=== PATIENT | female | born 1990 | race Two or more races ===

== ENCOUNTER 2016-11-27 13:48 | Emergency (ER) | payer OTHER ==
[~2016-11-27] VITALS: Ht 152.4 cm; Wt 59.0 kg
[~2016-11-27 13:48] MED LIST: HYDR-971 PO; NAPR500T8 PO; VENTOLIN HFA18 GM IH
[2016-11-27] MEDS ORDERED: HYDROcodone/APAP 5/325MG 1 TAB TABLET PO ONE (14:30)
[2016-11-27] MEDS ORDERED: ONDANSETRON ODT 4 MG TAB.RAPDIS. ONE (15:41)
--- NOTE | 2016-11-27 15:43 | RAD ---
CT HEAD WO CONTRAST Date: 11/27/2016 3:19 PM Clinical Indication: pt fell and hit head, now feels dizzy Comparison: None. Technique: 5 mm axial tomographic images were obtained of the head without contrast. Findings: The brain parenchyma is normal in attenuation. No intra- or extra-axial mass or fluid collection. No acute hemorrhage. The ventricles are normal in size, shape, and morphology. The gerber-white matter junction is normal. The basilar cisterns are patent. The visualized paranasal sinuses are normal. The visualized portions of the orbits and globes are normal. The mastoid air cells are clear. No aggressive osseous lesion or fracture. Impression: No acute intracranial process. PQRS Compliance Statement: One or more of the following individualized dose reduction techniques were utilized for this examination: 1. Automated exposure control 2. Adjustment of the mA and/or kV according to patient size 3. Use of iterative reconstruction technique Electronically signed by: Wale Segura MD (11/27/2016 3:40 PM) [facility] [place]
[2016-11-27] MEDS ORDERED: ONDANSETRON PF 4 MG/2 ML VIAL. IV ONE (15:45)
[2016-11-27 15:54] VITALS: BP 125/78
[2016-11-27] MEDS ORDERED: ONDANSETRON ODT 4 MG TAB.RAPDIS. PO ONE ×2 (16:00→16:45)
--- NOTE | 2016-11-27 16:30 | PHYS DOC ---
Past Medical History Past Medical History: Asthma, Other Additional Past Medical Histor: Gallstones surgery scheduled next week Past Surgical History: Cholecystectomy Additional Past Surgical Histo: foot; eye Alcohol Use: Occasionally Drug Use: None Adult General Chief Complaint Chief Complaint: HEAD INJURY/TRAUMA HPI HPI Patient is a 26 year old female who presents with headache & dizziness after a fall yesterday. She states last evening she tripped over her child on the stairs at home, struck her head against a metal vent. She reports brief loss of consciousness at time of injury. She has right sided scalp swelling. She reports lightheadedness. She feels nauseated. She has neck pain. She denies double vision. She denies extremity numbness/weakness. She denies syncope contributing to her fall. She is previously healthy & does not take blood thinners. She had bilateral eye surgery as a child. Review of Systems Review of Systems Constitutional: Denies fever or chills Eyes: Denies change in visual acuity HENT: Denies nasal congestion or sore throat Respiratory: Denies cough or shortness of breath Cardiovascular: Denies chest pain or edema GI: Reports nausea. Denies abdominal pain, vomiting Musculoskeletal: Reports neck pain Integument: Denies rash or skin lesions Neurologic: Reports headache, denies focal weakness or sensory changes Current Medications Current Medications Current Medications Medications (Trade) Dose Ordered Sig/Pauline Start Time Stop Time Status Last Admin Dose Admin Acetaminophen/ Hydrocodone Bitart (Lortab 5/325) 2 tab 1X ONCE 11/27/16 14:30 11/27/16 14:33 DC 11/27/16 14:52 2 TAB Ondansetron HCl (Zofran Odt) 4 mg 1X ONCE 11/27/16 16:45 11/27/16 16:46 DC Ondansetron HCl (Zofran) 4 mg 1X ONCE 11/27/16 15:45 11/27/16 16:37 DC Allergies Allergies Allergies Coded Allergies Type Severity Reaction Last Updated Verified diphenhydramine Adverse Reaction Intermediate 04/30/15 Yes Physical Exam Physical Exam Constitutional: Well developed, well nourished, no acute distress, non-toxic appearance. HENT: Normocephalic, mild right occipital hematoma with abrasion, bilateral external ears normal, oropharynx moist, nose normal. Eyes: PERRLA, EOMI though at rest she has upward/inward deviation of her right eye, conjunctiva normal, no discharge. Neck: supple, no stridor. no midline c-spine tenderness, right sided paraspinous muscle tenderness. Cardiovascular: RRR, no murmurs, no edema. Lungs & Thorax: LCTAB, no wheezing, no respiratory distress. Abdomen: soft, nontender, nondistended. Skin: Warm, dry, no erythema, no rash. Back: No tenderness. Extremities: No tenderness, no edema. 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 Psychologic: Affect normal, judgement normal, mood normal. Current Patient Data Vital Signs Vital Signs Date Time Temp Pulse Resp B/P (MAP) Pulse Ox O2 Delivery O2 Flow Rate FiO2 11/27/16 15:54 91 16 125/78 (94) 98 Room Air 11/27/16 14:00 98.8 98.8 Lab Values Laboratory Tests Test 11/27/16 13:51 POC Urine HCG, Qualitative Hcg negative (Negative) EKG EKG [] Radiology/Procedures Radiology/Procedures PROCEDURE: CT HEAD WO CONTRAST CT HEAD WO CONTRAST Date: 11/27/2016 3:19 PM Clinical Indication: pt fell and hit head, now feels dizzy Comparison: None. Technique: 5 mm axial tomographic images were obtained of the head without contrast. Findings: The brain parenchyma is normal in attenuation. No intra- or extra-axial mass or fluid collection. No acute hemorrhage. The ventricles are normal in size, shape, and morphology. The gerber-white matter junction is normal. The basilar cisterns are patent. The visualized paranasal sinuses are normal. The visualized portions of the orbits and globes are normal. The mastoid air cells are clear. No aggressive osseous lesion or fracture. Impression: No acute intracranial process. PQRS Compliance Statement: One or more of the following individualized dose reduction techniques were utilized for this examination: 1. Automated exposure control 2. Adjustment of the mA and/or kV according to patient size 3. Use of iterative reconstruction technique Electronically signed by: Wale Segura MD (11/27/2016 3:40 PM) [facility] [place] DICTATED and SIGNED BY: WALE SEGURA MD DATE: 11/27/16 1536 [] Course & Med Decision Making Course & Med Decision Making Pertinent Labs and Imaging studies reviewed. (See chart for details) The patient presents with headache & neck pain after a fall. She is well appearing & seated in a chair rather than on the bed in exam room. Gave norco for pain & zofran for nausea, & she is going to get a ride home as she drove herself. Obtained CT of the head which shows no acute intracranial process. She has right sided neck pain without cervical spine tenderness. She has CN6 palsy on exam but denies any visual complaints. She did have remote history of eye surgery but is unsure if she has deviation of gaze at baseline, in photos, etc. Discussed briefly with Dr. Bee of neurology, he felt likely chronic finding as she is well compensated without complaint of diplopia. Recommends no further imaging today given negative head CT, but may be beneficial to refer to ophthalmology & for outpatient MRI of the brain. Discussed results with the patient who is eager to go home today; she agrees with plan of care. Encouraged ibuprofen for pain, norco for severe pain & flexeril for muscle spasm. Follow up with PCP in 2-3 days for recheck & to schedule MRI, & referred to eye clinic. Come back for altered mental status, focal neurologic deficit, uncontrolled vomiting, any otherwise worsening condition. Discharged home in stable condition. [] Dragon Disclaimer Dragon Disclaimer This electronic medical record was generated, in whole or in part, using a voice recognition dictation system. Departure Departure Impression: Primary Impression: Closed head injury Disposition: 01 HOME, SELF-CARE Condition: STABLE Referrals: ALINA MCCALL MD (PCP) Nikki LEIVA MD Patient Instructions: Head Injury, Adult, [id number] Additional Instructions: You were seen in the emergency department today for head injury. The CT scan did not show a serious injury. Please rest, drink fluids, take Tylenol or ibuprofen for pain. For severe breakthrough pain, you may take [place]. No drinking alcohol or driving while taking this medication. Use Flexeril for muscle pain. Follow-up with primary care physician on Tuesday. It is recommended to have an outpatient MRI performed if you continue to have symptoms, based on abnormal eye exam here. You should also follow up with an eye doctor this week. Come back for confusion, numbness or weakness in arms or legs, uncontrolled vomiting, any otherwise worsening condition. Scripts Cyclobenzaprine Hcl (CYCLOBENZAPRINE HCL) 5 Mg Tablet 1 TAB PO TID Y for MUSCLE SPASMS, #10 TAB Prov: KENDRA BOONE MD 11/27/16 Hydrocodone/Apap 5-325 (NORCO 5-325 TABLET) 1 Each Tablet 1 TAB PO PRN Q6HRS Y for PAIN, #10 TAB 0 Refills Prov: KENDRA BOONE MD 11/27/16 Problem Qualifiers Primary Impression: Closed head injury Encounter type: initial encounter Qualified Codes: S09.90XA - Unspecified injury of head, initial encounter KENDRA BOONE MD Nov 27, 2016 16:30
[2016-11-27] MEDS ORDERED: CYCL5TAB PO (16:31)
[2016-11-27] MEDS ORDERED: HYDR-971 PO (16:31)
== END 2016-11-27 16:36 | disposition home or self-care (01) ==
LOC: ER 13:48
DX: S09.90XA Unspecified injury of head, initial encounter (principal); M54.2 Cervicalgia; R42 Dizziness and giddiness; J45.909 Unspecified asthma, uncomplicated; Z88.8 Allergy status to other drugs, medicaments and biological substances; W01.0XXA Fall on same level from slipping, tripping and stumbling without subsequent striking against object, initial encounter; Y93.89 Activity, other specified; Y99.8 Other external cause status; Y92.89 Other specified places as the place of occurrence of the external cause
CPT/HCPCS: 70450; 81025; 99284; Q0162